=== PATIENT | male | born 1990 | race Caucasian/White ===

== ENCOUNTER 2021-09-20 16:37 | Emergency (ER) | payer SELFPAY ==
[~2021-09-20] VITALS: Ht 182.9 cm; Wt 72.6 kg
== END 2021-09-21 12:00 | disposition home or self-care (01) ==
LOC: ED 16:37
DX: S61.512A Laceration without foreign body of left wrist, initial encounter (principal); F10.129 Alcohol abuse with intoxication, unspecified; X78.1XXA Intentional self-harm by knife, initial encounter; Z91.011 Allergy to milk products; Z20.822 Contact with and (suspected) exposure to COVID-19
CPT/HCPCS: 12002; 36415; 80053; 81001; 84443; 85025; 87502; 99284; C9803; G0480; U0003